=== PATIENT | male | born 1995 | race Two or more races ===

== ENCOUNTER 2021-04-11 14:40 | Emergency (ER) | payer SELFPAY ==
[~2021-04-11] VITALS: Ht 177.8 cm; Wt 74.8 kg
[2021-04-11] MEDS ORDERED: SODIUM CHLORIDE 0.9% 1,000 ML IV ONE ×2 (15:00)
[2021-04-11] MEDS ORDERED: LORazepam 2MG/ML-1ML VIAL IV ONE (15:00)
[2021-04-11 15:14] VITALS: BP 151/86
[2021-04-11] MEDS ORDERED: diphenhdrAMINE HCL 50 MG/1 ML VL IV ONE (15:45)
== END 2021-04-11 19:08 | disposition home or self-care (01) ==
LOC: ER 14:40 → EDBD 14:40 → ER 19:08
DX: R42 Dizziness and giddiness (principal); F14.10 Cocaine abuse, uncomplicated; R00.2 Palpitations; R11.0 Nausea
CPT/HCPCS: 93005; 96361; 96374; 96375; 99284; J1200; J2060; J7030

== ENCOUNTER 2022-02-27 12:25 | Emergency (ER) | payer MEDICAID, OTHER ==
[~2022-02-27] VITALS: Ht 177.8 cm; Wt 86.2 kg
[2022-02-27 13:09] VITALS: BP 117/68
[2022-02-27 13:30] LABS: Urine Bacteria NONE SEEN /hpf (None Seen); Urine Blood Negative /uL (Negative); Urine Mucus FEW (None Seen); Urine Specific Gravity 1.033 (1.001-1.035); Urine WBC <1 /hpf (0 - 3)
[2022-02-27 14:18] LABS: Basophils # (auto) 0 10 ^3/uL (0-0.2); Basophils % (auto) 0.2 % (0.0-2.0); Eosinophils # (auto) 0 10 ^3/uL (0-0.8); Hematocrit 46.9 % (41.0-53.0); Hemoglobin 15.5 g/dL (13.5-17.5); Lymphocytes # (auto) 0.6 10 ^3/uL (0.4-5.4); Lymphocytes % (auto) 5.6 % (10.0-50.0); Mean Corpuscular Hemoglobin 27.8 pg (28.0-32.0); Mean Corpuscular Volume 84.1 fL (80.0-100.0); Monocytes # (auto) 0.5 10 ^3/uL (0-1.3); Monocytes % (auto) 4.4 % (0.0-12.0); Neutrophils # (auto) 9.3 10 ^3/uL (1.6-8.6); Neutrophils % (auto) 89.8 % (37.0-80.0); Red Blood Cells 5.58 10^6/uL (4.5-5.90); Red Cell Distribution Width 15.1 % (11.8-14.3); White Blood Cell 10.3 10^3/uL (4.4-10.8)
[2022-02-27 14:41] LABS: Albumin 4.3 g/dL (3.4-5.0); Calcium 9.1 mg/dL (8.5-10.1); Potassium 3.7 mmol/L (3.5-5.1)
[2022-02-27 14:45] LABS: BUN/Creatinine Ratio 12.9; Bilirubin, Total 1.5 mg/dL (0.2-1.0); Total Protein 8.2 g/dL (6.4-8.2)
[2022-02-27] MEDS ORDERED: LORazepam 2MG/ML-1ML VIAL IV ONE (15:00)
[2022-02-27] MEDS ORDERED: LACTATED RINGER'S 1,000 ML IV ONE (15:00)
[2022-02-27] MEDS ORDERED: ALUM & MAG HYDROX-SIMETH LIQ(MAALOX) 30 ML PO ONE (18:00)
[2022-02-27] MEDS ORDERED: LIDOCAINE VISCOUS 2% 15ML UD PO ONE (18:00)
[2022-02-27] MEDS ORDERED: ONDANSETRON HCL 4 MG/2 ML VIAL IV ONE (18:00)
[2022-02-27] MEDS ORDERED: METOCLOPRAMIDE HCL 5MG/ml INJ 2ml VIAL IV ONE (18:00)
[2022-02-27] MEDS ORDERED: FAMOTIDINE (10MG/ML) 2ML VL IV ONE (18:00)
[2022-02-27] MEDS ORDERED: ONDA-144 PO (19:27)
== END 2022-02-27 21:31 | disposition left against medical advice (07) ==
LOC: ER 12:25
DX: R10.13 Epigastric pain (principal); R11.2 Nausea with vomiting, unspecified
CPT/HCPCS: 36415; 76705; 80053; 81001; 83690; 85025; 96360

== ENCOUNTER 2022-06-09 21:38 | Emergency (ER) | payer MEDICAID ==
[~2022-06-09] VITALS: Ht 177.8 cm; Wt 86.0 kg
[2022-06-09 21:38] VITALS: BP 137/89
[~2022-06-09 21:38] MED LIST: ONDA-144 PO
== END 2022-06-10 00:07 | disposition left against medical advice (07) ==
LOC: ER 21:38
DX: M79.644 Pain in right finger(s) (principal); F41.9 Anxiety disorder, unspecified; W26.8XXA Contact with other sharp object(s), not elsewhere classified, initial encounter; Y93.89 Activity, other specified; Y92.39 Other specified sports and athletic area as the place of occurrence of the external cause; Y99.8 Other external cause status
CPT/HCPCS: 73130

== ENCOUNTER 2024-10-10 08:48 | Inpatient (IN) | payer MEDICAID ==
[~2024-10-10] VITALS: Ht 177.8 cm; Wt 105.8 kg
--- NOTE | 2024-10-10 08:55 | ECG ---
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
[2024-10-10 09:02] VITALS: PULSE 77; RESP 16; O2SAT 95
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
[2024-10-10] MEDS: IOHEXOL 350 MG/ML 100ML IJ ONE (09:31)
--- NOTE | 2024-10-10 09:49 | ECG ---
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
[2024-10-10 09:57] LABS: Basophils # (auto) 0.1 10 ^3/uL (0-0.2); Basophils % (auto) 0.7 % (0.0-2.0); Eosinophils # (auto) 0.1 10 ^3/uL (0-0.8); Eosinophils % (auto) 1.3 % (0.0-7.0); Hematocrit 51.6 % (41.0-53.0); Hemoglobin 17.7 g/dL (13.5-17.5); Lymphocytes # (auto) 1.5 10 ^3/uL (0.4-5.4); Lymphocytes % (auto) 17.7 % (10.0-50.0); Mean Corpuscular Hemoglobin 31.9 pg (28.0-32.0); Mean Corpuscular Hgb Conc. 34.2 g/dL (32.0-36.0); Mean Corpuscular Volume 93.2 fL (80.0-100.0); Monocytes # (auto) 0.9 10 ^3/uL (0-1.3); Monocytes % (auto) 10.4 % (0.0-12.0); Neutrophils # (auto) 5.9 10 ^3/uL (1.6-8.6); Neutrophils % (auto) 69.9 % (37.0-80.0); Nucleated Red Blood Cells % 0.1 %; Platelet Count (auto) 273 10^3/uL (140-450); Red Blood Cells 5.54 10^6/uL (4.5-5.90); Red Cell Distribution Width 13.4 % (11.8-14.3); White Blood Cell 8.5 10^3/uL (4.4-10.8)
--- NOTE | 2024-10-10 10:16 | DVH ---
CT CHEST, ABDOMEN AND PELVIS CLINICAL HISTORY: dissection study please, hx of dissection, cp with neuro def TECHNIQUE: Multiple contiguous axial images of the chest, abdomen and pelvis with intravenous contras t. The images were reformatted degenerate coronal and sagittal reconstructions. 100 cc of Omnipaque 3 00 contrast was injected intravenously. All CT scans at this medical facility are performed using dose modulation techniques as appropriate t o a performed exam including the following:Automated exposure control was utilized; adjustment of the MA and/or KV according to patient size; and use of iterative reconstruction technique. Radiation Dose Information: CT Dose: CTDI volume is 16 mGy. Dose-length product is 1349 mGy*cm FINDINGS: The lungs are clear without evidence of consolidation. There is no pleural effusion or pneumothorax. There is no suspicious appearing pulmonary nodule or mass. There is no evidence of a mediastinal mass or lymphadenopathy. There is no hilar or axillary lymphad enopathy. The heart size within normal limits. There is no pericardial effusion. Be thoracic ureter demonstrate s normal caliber. There is an endovascular graft in the descending thoracic aortia. There is no evide nce of aortic dissection. There is diffuse fatty infiltration of the liver. The gallbladder, pancreas, kidneys, adrenal gla nds, and spleen appear within normal limits. There is no evidence of abdominal lymphadenopathy. There is no free fluid or free air. The stomach grossly appears unremarkable.The small and large bowel loops demonstrate normal caliber. There is a Normal-appearing appendix seen in the right lower quadrant abdomen. The abdominal aorta appears within normal limits without evidence of aneurysmal dilatation or dissect ion. There is large amount of streak artifact from internal fixation hardware in the right pelvis and hip. The bladder grossly grossly appears unremarkable. Pelvic organ grossly grossly appears within marquita l limits. There is no gross evidence of a pelvic mass. There is no obvious free fluid collection. There is no acute osseous abnormality. IMPRESSION: 1. There is no acute process in the chest, abdomen and pelvis. 2. The thoracic and abdominal aorta appear within normal limits without aneurysmal dilatation or diss ection. There is an endovascular graft in the descending thoracic aorta. aorta. The thoracic and abd ominal aorta appear within normal limits without aneurysmal dilatation or dissection. There is an en dovascular graft in the descending thoracic aorta. 3. Hepatic steatosis. HS:Y
[2024-10-10 11:37] LABS: Anion Gap 9 (5-15); BUN/Creatinine Ratio 5.6 (10.0-20.0); Carbon Dioxide 24 mmol/L (20-31); Chloride 100 mmol/L (98-107); Potassium 4.1 mmol/L (3.5-5.1)
[2024-10-10 11:42] LABS: Alanine Aminotransferase 129 U/L (7-40); Albumin 5.3 g/dL (3.2-4.8); Aspartate Aminotransferase 111 U/L (13-40); Bilirubin, Total 2.1 mg/dL (0.2-1.0); Blood Urea Nitrogen 5 mg/dL (9-23); Calcium 11.1 mg/dL (8.7-10.4); Glucose 111 mg/dL (74-106); Sodium 133 mmol/L (136-145); Total Protein 8.3 g/dL (5.7-8.2)
--- NOTE | 2024-10-10 11:53 | ECG ---
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
[2024-10-10 12:26] LABS: Alkaline Phosphatase 98 U/L (46-116)
[2024-10-10] MEDS ORDERED: DOCUSATE SOD 100 MG CAP PO PRN (15:15)
[2024-10-10] MEDS ORDERED: ONDANSETRON HCL 4 MG/2 ML VIAL IV PRN (15:15)
[2024-10-10] MEDS ORDERED: MORPHINE SULFATE INJ 2 MG/ml SYRG IV PRN (15:15)
[2024-10-10] MEDS ORDERED: NITROGLYCERIN 0.4 MG SL TAB SL PRN (15:15)
[2024-10-10] MEDS ORDERED: ACETAMINOPHEN 325 MG TAB PO PRN (15:15)
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
[2024-10-10 15:51] VITALS: BP 146/104; PULSE 68; PULSE 84; RESP 18; TEMP 98.6; O2SAT 97; O2SAT 98
[2024-10-10 16:02] VITALS: BP 146/104; PULSE 84; RESP 20; TEMP 98; O2SAT 98
[2024-10-10] MEDS: ASPirin 81 mg TAB PO ONE (17:33)
--- NOTE | 2024-10-10 19:38 | DVH ---
INDICATION: elevated liver enzymes TECHNIQUE: Multiple real-time sonographic images of the abdomen were obtained. COMPARISON: None FINDINGS: The liver is normal in size measuring 16.9 cm but demonstrates diffuse increased echogenicity consist ent with fatty infiltration. No focal lesion is identified in the liver. No intrahepatic biliary duct al dilatation. Gallbladder appears unremarkable with no stones, wall thickening, or pericholecystic fluid. Common bi le duct measures 3.6 mm and is unremarkable. The right kidney measures 12 cm. No hydronephrosis. Visualized pancreas appears unremarkable. IMPRESSION: Fatty infiltration of the liver.
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
[2024-10-10] MEDS: SODIUM CHLOR 0.9% PF (SALINE LOCK) 10ML VIAL/SYR IV SCH (21:51)
[2024-10-10] MEDS: ATORVASTATIN 20 MG TAB PO SCH (21:51)
[2024-10-10 22:00] VITALS: BP 137/91; PULSE 71; RESP 19; TEMP 98.1; O2SAT 97
[2024-10-10 22:16] VITALS: PULSE 84
[2024-10-11] VITALS (8 sets, daily range): BP systolic 124–144; BP diastolic 70–108; PULSE 70–88; RESP 16–19; TEMP 97.8–98.6; O2SAT 93–98
[2024-10-11] MEDS: HYDROcodone-ACET 5/325MG TAB PO PRN (00:35)
[2024-10-11 08:30] LABS: Basophils # (auto) 0.1 10 ^3/uL (0-0.2); Basophils % (auto) 1.4 % (0.0-2.0); Eosinophils # (auto) 0.2 10 ^3/uL (0-0.8); Eosinophils % (auto) 3.3 % (0.0-7.0); Hematocrit 51.4 % (41.0-53.0); Hemoglobin 17.5 g/dL (13.5-17.5); Lymphocytes # (auto) 2.1 10 ^3/uL (0.4-5.4); Lymphocytes % (auto) 29.2 % (10.0-50.0); Mean Corpuscular Hemoglobin 31.8 pg (28.0-32.0); Mean Corpuscular Volume 93.5 fL (80.0-100.0); Monocytes # (auto) 1.1 10 ^3/uL (0-1.3); Monocytes % (auto) 15.1 % (0.0-12.0); Neutrophils # (auto) 3.6 10 ^3/uL (1.6-8.6); Nucleated Red Blood Cells % 0.2 %; Platelet Count (auto) 238 10^3/uL (140-450); Red Cell Distribution Width 13.1 % (11.8-14.3); White Blood Cell 7.2 10^3/uL (4.4-10.8)
[2024-10-11 09:13] LABS: Alkaline Phosphatase 95 U/L (46-116); Anion Gap 10 (5-15); Carbon Dioxide 25 mmol/L (20-31); Chloride 103 mmol/L (98-107); Potassium 3.9 mmol/L (3.5-5.1); Sodium 138 mmol/L (136-145)
[2024-10-11 09:15] LABS: BUN/Creatinine Ratio 11.2 (10.0-20.0); Blood Urea Nitrogen 12 mg/dL (9-23); Glucose 92 mg/dL (74-106)
[2024-10-11 09:16] LABS: Alanine Aminotransferase 105 U/L (7-40); Aspartate Aminotransferase 58 U/L (13-40); Calcium 10.8 mg/dL (8.7-10.4)
[2024-10-11 09:17] LABS: Total Protein 8.2 g/dL (5.7-8.2)
[2024-10-11 09:18] LABS: Albumin 5.2 g/dL (3.2-4.8); Bilirubin, Total 1.4 mg/dL (0.2-1.0)
[2024-10-11] MEDS: ASPirin 81 mg TAB PO SCH (10:25)
[2024-10-11 11:18] LABS: Erythrocyte Sedimentation Rate 3 mm/hr (0-20)
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
[2024-10-11 13:50] LABS: Magnesium 2.4 mg/dL (1.6-2.6)
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
[2024-10-11] MEDS: SERTRALINE HCL 50 MG TAB PO ONE (14:15)
--- NOTE | 2024-10-11 15:07 | DVH ---
CLINICAL INDICATION: Eccymosis on right foot between 1 2, decreased sensation. TECHNIQUE: 2 radiographic views of the right foot were obtained. Comparison: None FINDINGS/IMPRESSION: There is no evidence of acute fracture or dislocation. The visualized joint space is well maintained. The alignment is anatomical. There is no radiopaque foreign body.
[2024-10-11 16:21] LABS: Free T3 4.47 pg/mL (2.3-4.2); Free T4 (Free Thyroxine) 2.13 ng/dL (0.89-1.76)
[2024-10-11] MEDS: traZODone HCL 50 MG TAB PO SCH (21:49)
[2024-10-12] VITALS: PULSE 75
[2024-10-12 05:00] VITALS: BP 122/79; PULSE 83; RESP 19; TEMP 98.2; O2SAT 96
[2024-10-12 08:00] VITALS: PULSE 56; PULSE 83; RESP 20; O2SAT 96
[2024-10-12 09:00] VITALS: BP 123/84; PULSE 83; RESP 20; TEMP 98.2; O2SAT 96
[2024-10-12] MEDS: LOSARTAN POTASSIUM 25 MG TAB PO SCH (09:19)
[2024-10-12] MEDS: SERTRALINE HCL 50 MG TAB PO SCH (10:00)
[2024-10-12 10:27] LABS: Urine Bacteria None Seen /hpf (None Seen)
[2024-10-12 10:55] LABS: Urine Blood Negative /uL (Negative); Urine Clarity Clear (Clear); Urine Color Yellow (Yellow); Urine Mucus FEW (None Seen); Urine Protein, UAD TRACE (Negative); Urine Squamous Epithelial Cell FEW /hpf (<5); Urine Urobilinogen Normal (Negative); Urine WBC 1 /HPF (0-3)
[2024-10-12] MEDS ORDERED: ATOR20TA50 PO (12:09)
[2024-10-12] MEDS ORDERED: ASPI-325 PO (12:09)
[2024-10-12] MEDS ORDERED: LOS25T PO (12:09)
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
[2024-10-12 13:00] VITALS: BP 118/72; PULSE 61; RESP 20; TEMP 98.2; O2SAT 95
[2024-10-12 13:02] LABS: Cannabinoid Screen, Urine Neg (NEGATIVE); Cocaine Screen, Urine Neg (NEGATIVE); Opiate Scree,Urine Neg (NEGATIVE); Phencyclidine Screen, Urine Neg (NEGATIVE)
[2024-10-12 13:21] LABS: Barbiturate Scree,Urine Neg (NEGATIVE); Benzodiazephine Screen, Urine Neg (NEGATIVE)
[2024-10-12 14:04] LABS: Amphetamine Screen, Urine Pos (NEGATIVE)
[2024-10-12 17:00] VITALS: BP 131/77; PULSE 71; RESP 20; TEMP 98; O2SAT 97
== END 2024-10-12 17:35 | disposition home or self-care (01) | DRG 203 ==
LOC: ER 08:48 → TELE 15:11 → OVERFLOW 16:07 → WEST WING 19:00 → OVERFLOW 10-11 13:08 → TELE-WESTW 10-11 13:13
PROVIDERS: ADMIT Nurse Practitioner Family; ATTEND Family Medicine
DX: R07.89 Other chest pain (principal); K76.0 Fatty (change of) liver, not elsewhere classified; E66.9 Obesity, unspecified; F41.9 Anxiety disorder, unspecified; R20.2 Paresthesia of skin; I71.40 Abdominal aortic aneurysm, without rupture, unspecified; F19.10 Other psychoactive substance abuse, uncomplicated; E83.52 Hypercalcemia; G47.00 Insomnia, unspecified; I10 Essential (primary) hypertension; Z96.643 Presence of artificial hip joint, bilateral; Z68.33 Body mass index [BMI] 33.0-33.9, adult
CPT/HCPCS: 36415; 71260; 73620; 74177; 76705; 80053; 80061; 80307; 80320; 81001; 83605; 83735; 83880; 84439; 84443; 84481; 84484; 85025; 85652; 86141; 93005; 93306; 99291; G0378